=== PATIENT | female | born 2000 | race Hispanic/Latino ===

== ENCOUNTER 2024-04-13 08:27 | Day surgery (SDC) | payer OTHER, BC ==
[2024-04-13] MEDS: Ringers Lactate 1,000 ML IV ONE (09:00)
[2024-04-13] MEDS ORDERED: LIDOCAINE 1% MPF 5 ML VIAL ONE (10:12)
[2024-04-13] MEDS ORDERED: propofoL 200 MG/20 ML VIAL IV ONE (10:12)
[2024-04-13] MEDS ORDERED: FENTANYL CITR 100 MCG/2 ML ONE (10:12)
[2024-04-13] MEDS ORDERED: dexAMETHasone 10 MG/ML VIAL ONE (10:12)
[2024-04-13] MEDS ORDERED: ONDANSETRON 4 MG/2 ML VIAL ONE (10:12)
[2024-04-13] MEDS ORDERED: MIDAZOLAM HCL 2 MG/2 ML INJ ONE (10:12)
[2024-04-13] MEDS ORDERED: ROCURONIUM 50 MG/5 ML VIAL IV ONE (10:13)
[2024-04-13] MEDS ORDERED: MORPHINE 10 MG/ML VIAL ONE (10:57)
[2024-04-13] MEDS: BUPIVACAINE 0.25% PF 10 ML VIAL ONE (11:00)
--- NOTE | 2024-04-13 11:43 | P.OP ---
Date of Service: 04/13/24 Preoperative diagnosis: Recurrent acute tonsillitis, chronic tonsillitis, Tonsillolithiasis Postoperative diagnosis: Same Procedure: Tonsillectomy Surgeon: Avani Vega MD Instructional Support Technician: None Anesthesia: General via endotracheal tube IV fluids: See anesthesia record, crystalloid Estimated blood loss: Minimal, less than 5 mL Specimen: Bilateral tonsils Findings: Chronically inflamed and submucosal tonsil with deep crypts and tonsil stones Implants: None Indication: patient with persistent symptoms and findings in spite of good medical management. Details of operation: The patient was brought to the operating room and placed under general anesthesia via oral endotracheal tube. The head of bed was turned 90 degrees. A shoulder roll was placed and the neck was extended. A head drape was applied. The McIvor mouthgag was placed and suspended from the Torres stand. The oxygen concentration was confirmed with the anesthesiologist and was less than 40%. Weight-based dexamethasone was administered by the anesthesiologist. The soft palate was palpated and there was no submucous cleft. A red rubber catheter was placed in the nose and the tip withdrawn through the mouth and secured to the head drape for retraction of the soft palate. The tonsils were noted to be small with moderate submucosal component with deep crypts and tonsil stones. The left tonsil was grasped with a straight Allis clamp. The Bovie electrocautery was used to incise the mucosa over the anterior pillar and identified the tonsillar capsule. The tonsil was dissected using cautery and blunt dissection until free from soft tissue attachments. A tonsil ball was placed to aid in hemostasis. The right tonsil was removed in a similar manner. The nasopharynx was examined using a laryngeal mirror but there was no significant adenoid tissue and no adenoidectomy was indicated. The tonsillar fossa's were injected with 0.5% Marcaine with epinephrine; a total of 2 milliliters was used. The oropharynx was irrigated with cold saline. After suctioning, a Shackelford sump orogastric tube was passed for decompression of the stomach. The red rubber catheter was removed and used to suction the oropharynx, nasopharynx, and nasal cavities. The McIvor mouthgag was removed. There was no evidence of injury to the teeth, lips, or tongue. The mandible was mobile. The patient was then awakened from anesthesia and extubated in the operating room, taken to the recovery room in stable condition. Disposition: The patient will be discharged home later today in the care of their family with written postoperative instructions and appropriate pain medications. They will follow-up in Dr. Vega's office in approximately 1 mo nth. They are instructed to contact Dr. Vega's office for any bleeding or other concerns.
[2024-04-13] MEDS: HYDROMORPHONE HCL 1 MG/ML INJ ONE ×2 (11:47→12:04)
[2024-04-13] MEDS: ONDANSETRON 4 MG/2 ML VIAL ONE (11:50)
[2024-04-13 12:13] LABS: Urine Specific Gravity/Preg 1.025 (1.005-1.030)
[2024-04-13 12:53] VITALS: BP 150/81; TEMP 97.2; O2SAT 100
[2024-04-13] MEDS: HYDROCOD 2.5mg-ACETAMIN 108mg/5mL Soln ONE (13:14)
== END 2024-04-13 14:05 | disposition home or self-care (01) ==
LOC: OR 08:27
PROVIDERS: ATTEND Otolaryngology
PROC: 0CTPXZZ Resection of Tonsils, External Approach (ICD-10-PCS; principal; 2024-04-13 09:30)
DX: J03.91 Acute recurrent tonsillitis, unspecified (principal); J35.01 Chronic tonsillitis; J35.8 Other chronic diseases of tonsils and adenoids
CPT/HCPCS: 36415; 81025; 88302; 85018; 42826; J2704; J2001; J2250; J3010; J1100; J1170 ×2; J2405 ×2; J7120; 88304

== ENCOUNTER 2024-04-18 06:22 | Observation (INO) | payer OTHER, BC ==
--- OUTSIDE RECORDS SUMMARY | 2024-04-18 06:26 | XMS REPORT | Continuity of Care Document ---
Author Name Unknown Address [address] [facility] [address] [place] [address] [facility] thconnect Address [address] [facility] [place] [address] Care Team Providers Care Associate Dean Of Students Name Role Phone [phone] Primary Care Physician Unavailab Mike Gilbert Attending Clinician Unavailable OMAGCHARISSEIROGEAYCOOKIEI Attending Clinician Unavailgabriela keller Omaghomi WATERPROOFER, Omayemi Attending Clinician [phone] Unknown, Attending Attending Clinician Unavailab le Ebrahim WATERPROOFERSwapnli Attending Clinician +[phone] SWAPNIL LAL Attending Clinician Unavailable Pob, Adc Lab Main Attending Clinician UnavailShira Chinchilla MD Attending Clinician [phone] SHIRA SOUTH Attending Clinician UnavailDIANNA Delgado Attending Clinician Unavailable Dianna Mcrae MD Attending Clinician [phone] Unknown, Attending Attending Clinician Unavailab le RADIOLOGY Attending Clinician Unavailable Radiology Attending Clinician Unavailable BLANCA BLACK Attending Clinician Unavailable Blanca Black MD Attending Clinician [phone] Ebrahim WATERPROOFERSwapnil Attending Clinician [phone] Ghada MOYA, Azalia Argueta Attending Clinician Maria L kamille Mckeon MD, Otis Attending Clinician [phone] OTIS MCKEON Attending Clinician Unavailable ERICKA SYED Attending Clinician Unavailab Ericka Glaser DO Attending Clinician [phone] Rc WOLF Attending Clinician Unavailable Rc Mayen Attending Clinician [phone] Ricardo DAVISON, Nkjaspreet Attending Clinician [phone] Nel Waters Attending Clinician [phone] NEL LOGAN Attending Clinician Unavailable Doctor Unassigned, [place] Attending Clinician U dayton Mejia RN, Polly Attending Clinician Unavailgabriela Lnetz MD, Aura Barr Attending Clinician [phone] AURA LENTZ Attending Clinician UnavailYOKASTA Hastings Attending Clinician Unavailable Yokasta Jimenez PA-C Attending Clinician [phone] SAGRARIO HEWITT Attending Clinician Unavailable Oz WATERPROOFERSagrario Attending Clinician [phone] Chayo Méndez Attending Clinician [phone] ALANA TOSCANO Attending Clinician Unavailable Alana Toscano MD Attending Clinician [phone] Physician, No Primary or Family Admitting Clinic kt Unavailable GABRIELE JARA Admitting Clinician Unavailable BLANCA BLACK Admitting Clinician Unavailable OTIS MCKEON Admitting Clinician Unavailable ERICKA SYED Admitting Clinician Unavailab Rc Garza Admitting Clinician Unavailable IDMA ANDERSON Admitting Clinician Unavailable ALANA TOSCANO Admitting Clinician Unavailable Payers Payer Name Policy Type Policy Number Effective Date Expirati on Date Source [employer] [id number] 2021 00:00:00 [employer] EM[employer] PLAN [id number] 2023 00:00:00 Problems Condition Name Condition Details Condition Category Status Onset Date Resolution Date Last Treatment Date Treating Clinician Comments Source No known active problems No known active problems Disease [facility] Allergies, Adverse Reactions, Alerts Allergy Name Allergy Type Status Severity Reaction(s) Onset Date Inactive Date Treating Clinician Comments Source THYROID (PORK) DRUG Active High N/V 03-01 00:00: 00 [facility] Thyroid (Pork) Drug Allergy Active Nausea and/or Vomiting 03-01 00:00: 00 [facility] ALLERGEN IC EXTRACT- FOOD-POR K DRUG Active Diarrhea 04-25 00:00: 00 [facility] Allergen ic Extract- Food-Por k Propensi ty to adverse reaction s Active Nausea and/or Vomiting 04-25 00:00: 00 [facility] NO KNOWN ALLERGIE S Drug Class Active [facility] Social History Social Habit Start Date Stop Date Quantity Comments Source [facility] Social function 2023-03-07 00:00:00 2023-03-07 00:00:00 [facility] Exposure to SARS-CoV-2 (event) 2022-08-13 00:00:00 2022-08-23 14:07:00 Not sure [facility] Tobacco use and exposure 2022-02-09 00:00:00 2022-02-09 00:00:00 Smokeless tobacco non-user [facility] Sex assigned at 2000 00:00:00 2000 00:00:00 [facility] Smoking Status Start Date Stop Date Source Never smoked tobacco [facility] Medications Ordered Medication Name Filled Medication Name Start Date Stop Date Current Medication? Ordering Clinician Indication Dosage Frequency Signature (SIG) Comments Components Source albuterol 2.5 mg /3 mL (0.083 %) nebulizer solution 03-21 00:00: 00 Yes [id number] 2.5mg Inhale 3 mL every 4 (four) hours as needed for Wheezing or Shortness of Breath. [facility] bromphenira mine-pseudo ephedrine-D M (BROMFED DM) 2-30-10 mg/5 mL syrup 03-21 00:00: 00 04-01 04:59 :00 Yes [id number] 10mL Take 10 mL by mouth 4 (four) times daily as needed for Cold symptoms for up to 10 days. [facility] predniSONE 20 mg tablet 8-14 00:00: 00 03-27 04:59 :00 Yes [id number] 20mg Take 1 tablet by mouth in the morning and 1 tablet in the evening. Do all this for 5 days. [facility] penicillin g benzathine (BICILLIN L-A) injection 1.2 Million Units 8-10 23:45: 00 03-17 22:58 :00 No [id number] 1.210 1.2 Million Units, Intramuscu lar, ONCE, 1 dose, On 03/17/24 at 1845, CAROLA, Reason for Anti-Infec tive: Documented Infection, Documented Infection Site: HEENT, Duration of Therapy: Once (ED) [facility] penicillin g benzathine (BICILLIN L-A) injection 1.2 Million Units 6-19 00:00: 00 01-23 23:08 :00 No [id number] 1.210 [facility] amoxicillin 500 mg tablet 3-18 00:00: 00 11-03 04:59 :00 No [id number] 500mg Take 1 tablet by mouth in the morning and 1 tablet in the evening. Do all this for 10 days. [facility] fluconazole (DIFLUCAN) 150 mg tablet 3-18 00:00: 00 10-24 04:59 :00 No [id number] 150mg Take 1 tablet by mouth once now for 1 dose. [facility] iopamidol (ISOVUE 370-500 mL) injection 90 mL 16 22:15: 00 09-23 22:30 :00 No [id number] 90mL 90 mL, Intravenou s, ONCE, 1 dose, On Tue09/23/23 at 1630, Routine [facility] citalopram 10 mg tablet -16 14:48: 53 09-23 00:00 :00 No citalopram 10 mg tablet Take 1 tablet every day by oral route. [facility] tacrolimus 0.1 % ointment 09-23 14:47: 48 09-23 00:00 :00 No Apply to area(s). [facility] norgestimat e-ethinyl estradioL 0.25-35 mg-mcg per tablet 09-23 14:47: 20 09-23 00:00 :00 No Take by mouth. [facility] cetirizine 5 mg tablet 09-23 14:46: 37 09-23 00:00 :00 No 5mg Take 5 mg by mouth. [facility] liothyronin e 5 mcg tablet 2022-08 00:00: 00 Yes [facility] dexamethaso ne sod phos PF injection 10 mg 2022-08 23:00: 00 06-05 00:29 :00 No 10mg 10 mg, Oral, ONCE, 1 dose, On 06/04/23 at 1800, 1 mL [facility] ibuprofen (IBU) tablet 600 mg 2022-08 23:00: 00 06-05 00:29 :00 No 600mg 600 mg, Oral, ONCE, 1 dose, On 06/04/23 at 1800, CAROLA [facility] naproxen (NAPROSYN) tablet 500 mg 2022-08 01:30: 00 05-20 00:30 :00 No 500mg 500 mg, Oral, ONCE, 1 dose, On Shana 05/19/23 at 2030, Routine [facility] naproxen (NAPROSYN) 500 mg tablet 2022-08 00:00: 00 Yes [id number] 500mg Take 1 tablet by mouth in the morning and 1 tablet in the evening. Take with meals. [facility] amoxicillin -clavulanat e (AUGMENTIN) 875-125 mg per tablet 24 00:00: 00 05-12 04:59 :00 No [id number] 1{tbl} Take 1 tablet by mouth in the morning and 1 tablet in the evening. Do all this for 10 days. [facility] promethazin e-dextromet horphan 6.25-15 mg/5 mL syrup 05-01 00:00: 00 05-12 04:59 :00 No [id number] 5mL Take 5 mL by mouth 4 (four) times daily for 10 days. [facility] levalbutero l 45 mcg/actuati on inhaler 04-26 00:00: 00 05-04 04:59 :00 No [id number] 1{puff} Inhale 1 Puff every 6 (six) hours as needed for Wheezing for up to 7 days. [facility] methylPREDN ISolone (MEDROL, NERIS,) 4 mg tablets 04-25 00:00: 00 09-23 00:00 :00 No [id number] follow package directions [facility] benzonatate 200 mg capsule 04-25 00:00: 00 05-06 04:59 :00 No [id number] 200mg Take 1 capsule by mouth 3 (three) times daily as needed for Cough for up to 10 days. [facility] albuterol 90 mcg/actuati on inhaler 04-25 00:00: 00 04-26 00:00 :00 No [id number] 2{puff} Inhale 2 Puffs every 6 (six) hours as needed for Wheezing for up to 10 days. [facility] amoxicillin 500 mg tablet 03-07 00:00: 00 09-23 00:00 :00 No [id number] 500mg Take 1 tablet by mouth in the morning and 1 tablet in the evening. [facility] ondansetron 4 mg disintegrat ing tablet 03-07 00:00: 00 09-23 00:00 :00 No [id number] 4mg Take 1 tablet by mouth every 8 (eight) hours as needed for Nausea and Vomiting (N/V). [facility] methylPREDN ISolone sod succ (SOLU-MEDRO L (PF)) injection 40 mg 08-23 21:15: 00 08-23 20:35 :00 No [id number] 40mg [facility] s y [facility] ipratropium -albuteroL (DUONEB) 0.5 mg-3 mg(2.5 mg base)/3 mL nebulizer solution 3 mL 08-23 21:15: 00 08-23 20:34 :00 No [id number] 3mL [facility] s y [facility] norgestimat e-ethinyl estradioL 0.25-35 mg-mcg per tablet 08-23 14:16: 21 Yes Take by mouth. [facility] cabergoline 0.5 mg tablet 08-23 14:16: 21 Yes cabergolin e 0.5 mg tablet Take 1 tablet twice a week by oral route. [facility] cetirizine 5 mg tablet 08-23 14:16: 21 Yes 5mg Take 5 mg by mouth. [facility] citalopram 10 mg tablet 08-23 14:16: 21 Yes citalopram 10 mg tablet Take 1 tablet every day by oral route. [facility] tacrolimus 0.1 % ointment 08-23 14:16: 21 Yes Apply to area(s). [facility] Nebulizer & Compressor For Neb Kassy 08-23 00:00: 00 Yes [id number] Use as directed [facility] albuterol 2.5 mg /3 mL (0.083 %) nebulizer solution 08-23 00:00: 00 Yes [id number] 2.5mg Inhale 3 mL every 4 (four) hours as needed for Shortness of Breath or Wheezing. [facility] % nebulizer solution 08-23 00:00: 00 Yes [id number] .5mg Inhale 2.5 mL every 4 (four) hours as needed for Wheezing or Shortness of Breath. [facility] ity [facility] Nebulizer & Compressor For Neb Kassy 08-23 00:00: 00 Yes [id number] Use as directed [facility] benzonatate 100 mg capsule 08-23 00:00: 00 09-23 00:00 :00 No [id number] 200mg Take 2 capsules by mouth every 8 (eight) hours as needed for Cough. [facility] predniSONE 20 mg tablet 08-23 00:00: 00 08-29 05:59 :00 No [id number] 40mg Take 2 tablets by mouth in the morning for 5 days. [facility] tacrolimus 0.1 % ointment 03-27 18:51: 30 Yes Apply to area(s). [facility] cabergoline 0.5 mg tablet 03-27 18:51: 29 Yes cabergolin e 0.5 mg tablet Take 1 tablet twice a week by oral route. [facility] cetirizine 5 mg tablet 03-27 18:51: 29 Yes 5mg Take 5 mg by mouth. [facility] citalopram 10 mg tablet 03-27 18:51: 29 Yes citalopram 10 mg tablet Take 1 tablet every day by oral route. [facility] hydrOXYzine 25 mg tablet 03-18 00:00: 00 09-23 00:00 :00 No TAKE 1 TABLET EVERY TWELVE HOURS NEEDED [facility] norgestimat e-ethinyl estradioL 0.25-35 mg-mcg per tablet 02-09 18:46: 12 Yes Take by mouth. [facility] ondansetron 4 mg disintegrat ing tablet 02-09 00:00: 00 03-07 00:00 :00 No [id number] 4mg Take 1 tablet by mouth every 8 (eight) hours as needed for Nausea and Vomiting (N/V). [facility] Levonorgest rel 1.5 mg tablet 02-05 00:00: 00 09-23 00:00 :00 No [facility] ANNOVERA 0.15-0.013 mg/24 hour Ring 02-05 00:00: 00 09-23 00:00 :00 No [facility] buPROPion XL 300 mg 24 hr tablet 24 00:00: 00 Yes 300mg Take 1 tablet by mouth in the morning. [facility] buPROPion XL 150 mg 24 hr tablet 24 00:00: 00 Yes 150mg Take 150 mg by mouth daily. [facility] levothyroxi ne 125 mcg tablet 01-19 00:00: 00 Yes 125ug Take 1 tablet by mouth. [facility] levothyroxi ne 150 mcg tablet 01-19 00:00: 00 Yes 150ug Take 150 mcg by mouth. [facility] spironolact one 25 mg tablet 12-21 00:00: 00 Yes 25mg Take 25 mg by mouth 2 (two) times daily. [facility] sumatriptan 100 mg tablet 12-11 00:00: 00 09-23 00:00 :00 No [facility] albuterol 90 mcg/actuati on inhaler 11-22 00:00: 00 Yes [id number] 2{puff} Inhale 2 Puffs every 4 (four) hours as needed for Wheezing or Shortness of Breath. [facility] ibuprofen 800 mg tablet 11-22 00:00: 00 Yes [id number] 800mg Take 1 tablet by mouth every 8 (eight) hours as needed for Pain (scale 4-6) or Temp > 38.5 C. [facility] benzonatate 200 mg capsule 11-22 00:00: 00 09-23 00:00 :00 No [id number] 200mg Take 1 capsule by mouth 3 (three) times daily as needed for Cough. [facility] Immunizations Ordered Immunization Name Filled Immunization Name Date Status Comments Source Influenza Virus Vaccine Quad IM, Preserv and ABX Free 6 MO-64 YRS (FLUCELVAX) Unknown Completed [facility] Influenza Virus Vaccine Quad IM, Preserv and ABX Free 6 MO-64 YRS (FLUCELVAX) Unknown Completed [facility] Influenza Virus Vaccine Quad IM, Preserv and ABX Free 6 MO-64 YRS (FLUCELVAX) Unknown Completed [facility] Influenza Virus Vaccine Quad IM, Preserv and ABX Free 6 MO-64 YRS (FLUCELVAX) Unknown Completed [facility] Influenza Virus Vaccine Quad IM, Preserv and ABX Free 6 MO-64 YRS (FLUCELVAX) Unknown Completed [facility] Influenza Virus Vaccine Quad IM, Preserv and ABX Free 6 MO-64 YRS (FLUCELVAX) Unknown Completed [facility] Influenza Virus Vaccine Quad IM, Preserv and ABX Free 6 MO-64 YRS (FLUCELVAX) Unknown Completed [facility] Influenza Virus Vaccine Quad IM, Preserv and ABX Free 6 MO-64 YRS (FLUCELVAX) Unknown Completed [facility] Influenza Virus Vaccine Quad IM, Preserv and ABX Free 6 MO-64 YRS (FLUCELVAX) Unknown Completed [facility] Influenza Virus Vaccine Quad IM, Preserv and ABX Free 6 MO-64 YRS (FLUCELVAX) Unknown Completed [facility] Influenza Virus Vaccine Quad IM, Preserv and ABX Free 6 MO-64 YRS (FLUCELVAX) Unknown Completed [facility] Influenza Virus Vaccine Quad IM, Preserv and ABX Free 6 MO-64 YRS (FLUCELVAX) Unknown Completed [facility] Influenza Virus Vaccine Quad IM, Preserv and ABX Free 6 MO-64 YRS (FLUCELVAX) Unknown Completed [facility] Influenza Virus Vaccine Quad IM, Preserv and ABX Free 6 MO-64 YRS (FLUCELVAX) Unknown Completed [facility] Influenza Virus Vaccine Quad IM, Preserv and ABX Free 6 MO-64 YRS (FLUCELVAX) Unknown Completed [facility] Influenza Virus Vaccine Quad IM, Preserv and ABX Free 6 MO-64 YRS (FLUCELVAX) Unknown Completed [facility] Vital Signs Vital Name Observation Time Observation Value Comments S ource Systolic blood pressure 2024-03-21 15:15:00 126 mm[Hg] [facility] Diastolic blood pressure 2024-03-21 15:15:00 86 mm[Hg] [facility] Heart rate 2024-03-21 15:15:00 101 /min [facility] Body temperature 2024-03-21 15:15:00 37.11 Ivory [facility] Respiratory rate 2024-03-21 15:15:00 19 /min [facility] Body height 2024-03-21 15:15:00 172.7 cm [facility] Body weight 2024-03-21 15:15:00 73.165 kg [facility] BMI 2024-03-21 15:15:00 24.53 kg/m2 [facility] Oxygen saturation in Arterial blood by Pulse oximetry 2024-03-21 15:15:00 100 /min [facility] Systolic blood pressure 2024-03-17 22:44:00 132 mm[Hg] [facility] Diastolic blood pressure 2024-03-17 22:44:00 83 mm[Hg] [facility] Heart rate 2024-03-17 22:44:00 103 /min [facility] Body temperature 2024-03-17 22:44:00 37.06 Ivory [facility] Respiratory rate 2024-03-17 22:44:00 12 /min [facility] Body height 2024-03-17 22:44:00 172.7 [facility] Body weight 2024-03-17 22:44:00 27.987 [facility] BMI 2024-03-17 22:44:00 9.38 kg/m2 [facility] Oxygen saturation in Arterial blood by Pulse oximetry 2024-03-17 22:44:00 100 /min [facility] Systolic blood pressure 2024-01-24 22:36:00 122 mm[Hg] [facility] Diastolic blood pressure 2024-01-24 22:36:00 84 mm[Hg] [facility] Heart rate 2024-01-24 22:35:00 103 /min [facility] Body temperature 2024-01-24 22:35:00 36.72 Ivory [facility] Respiratory rate 2024-01-24 22:35:00 16 /min [facility] Body weight 2024-01-24 22:35:00 69.582 kg [facility] BMI 2024-01-24 22:35:00 23.32 kg/m2 [facility] Oxygen saturation in Arterial blood by Pulse oximetry 2024-01-24 22:35:00 100 /min [facility] Systolic blood pressure 2023-10-24 14:17:00 135 mm[Hg] [facility] Diastolic blood pressure 2023-10-24 14:17:00 87 mm[Hg] [facility] Heart rate 2023-10-24 14:17:00 97 /min [facility] Body temperature 2023-10-24 14:17:00 36.83 Ivory [facility] Respiratory rate 2023-10-24 14:17:00 20 /min [facility] Body height 2023-10-24 14:17:00 172.7 cm [facility] Body weight 2023-10-24 14:17:00 69.4 kg [facility] BMI 2023-10-24 14:17:00 23.26 kg/m2 [facility] Oxygen saturation in Arterial blood by Pulse oximetry 2023-10-24 14:17:00 99 /min [facility] Systolic blood pressure 2023-09-23 22:00:00 106 mm[Hg] [facility] Diastolic blood pressure 2023-09-23 22:00:00 74 mm[Hg] [facility] Heart rate 2023-09-23 22:00:00 80 /min [facility] Respiratory rate 2023-09-23 22:00:00 25 /min [facility] Oxygen saturation in Arterial blood by Pulse oximetry 2023-09-23 22:00:00 100 /min [facility] Body temperature 2023-09-23 20:00:00 36.28 Ivory [facility] Body height 2023-09-23 20:00:00 172.7 cm [facility] Body weight 2023-09-23 20:00:00 65.772 kg [facility] BMI 2023-09-23 20:00:00 22.05 kg/m2 [facility] Systolic blood pressure 2023-09-16 17:52:00 125 mm[Hg] [facility] Diastolic blood pressure 2023-09-16 17:52:00 87 mm[Hg] [facility] Heart rate 2023-09-16 17:52:00 80 /min [facility] Body temperature 2023-09-16 17:52:00 36.28 Ivory [facility] Respiratory rate 2023-09-16 17:52:00 12 /min [facility] Body height 2023-09-16 17:52:00 172.7 cm [facility] Body weight 2023-09-16 17:52:00 66.633 kg [facility] BMI 2023-09-16 17:52:00 22.34 kg/m2 [facility] Oxygen saturation in Arterial blood by Pulse oximetry 2023-09-16 17:52:00 100 /min [facility] Systolic blood pressure 2023-06-16 20:13:00 124 mm[Hg] [facility] Diastolic blood pressure 2023-06-16 20:13:00 85 mm[Hg] [facility] Heart rate 2023-06-16 20:13:00 84 /min [facility] Body height 2023-06-16 20:13:00 172.7 cm [facility] Body weight 2023-06-16 20:13:00 68.221 kg [facility] BMI 2023-06-16 20:13:00 22.87 kg/m2 [facility] Oxygen saturation in Arterial blood by Pulse oximetry 2023-06-16 20:13:00 99 /min [facility] Systolic blood pressure 2023-06-05 01:29:00 119 mm[Hg] [facility] Diastolic blood pressure 2023-06-05 01:29:00 83 mm[Hg] [facility] Heart rate 2023-06-05 01:29:00 79 /min [facility] Body temperature 2023-06-05 01:29:00 36.67 Ivory [facility] Respiratory rate 2023-06-05 01:29:00 18 /min [facility] Oxygen saturation in Arterial blood by Pulse oximetry 2023-06-05 01:29:00 100 /min [facility] Body height 2023-06-04 22:44:00 172.7 cm [facility] Body weight 2023-06-04 22:44:00 68.04 kg [facility] BMI 2023-06-04 22:44:00 22.81 kg/m2 [facility] Systolic blood pressure 2023-05-20 00:28:00 135 mm[Hg] [facility] Diastolic blood pressure 2023-05-20 00:28:00 100 mm[Hg] [facility] Heart rate 2023-05-20 00:28:00 69 /min [facility] Respiratory rate 2023-05-20 00:28:00 18 /min [facility] Oxygen saturation in Arterial blood by Pulse oximetry 2023-05-20 00:28:00 100 /min [facility] Body temperature 2023-05-19 21:32:00 36.28 Ivory [facility] Body height 2023-05-19 21:32:00 172.7 cm [facility] Body weight 2023-05-19 21:32:00 69.4 kg [facility] BMI 2023-05-19 21:32:00 23.26 kg/m2 [facility] Systolic blood pressure 2023-05-01 14:54:00 117 mm[Hg] [facility] Diastolic blood pressure 2023-05-01 14:54:00 77 mm[Hg] [facility] Heart rate 2023-05-01 14:53:00 91 [facility] 2023-05-01 14:53:00 36.89 Ivory [facility] Respiratory rate 2023-05-01 14:53:00 16 /min [facility] Body height 2023-05-01 14:53:00 172.7 cm [facility] Body weight 2023-05-01 14:53:00 67.132 kg [facility] BMI 2023-05-01 14:53:00 22.50 kg[facility]m2 [facility] Oxygen saturation in Arterial blood by Pulse oximetry 2023-05-01 14:53:00 100 /min [facility] Systolic blood pressure 2023-04-25 15:18:00 126 mm[Hg] [facility] Diastolic blood pressure 2023-04-25 15:18:00 86 mm[Hg] [facility] Heart rate 2023-04-25 15:18:00 81 /min [facility] Body temperature 2023-04-25 15:16:00 36.94 Ivory [facility] Respiratory rate 2023-04-25 15:16:00 18 /min [facility] Body height 2023-04-25 15:16:00 172.7 cm [facility] Body weight 2023-04-25 15:16:00 67.223 kg [facility] BMI 2023-04-25 15:16:00 22.53 kg/m2 [facility] Oxygen saturation in Arterial blood by Pulse oximetry 2023-04-25 15:16:00 98 /min [facility] Systolic blood pressure 2023-03-07 16:51:00 127 mm[Hg] [facility] Diastolic blood pressure 2023-03-07 16:51:00 84 mm[Hg] [facility] Heart rate 2023-03-07 16:51:00 88 /min [facility] Body temperature 2023-03-07 16:51:00 36.94 Ivory [facility] Respiratory rate 2023-03-07 16:51:00 20 /min [facility] Body height 2023-03-07 16:51:00 172.7 cm [facility] Body weight 2023-03-07 16:51:00 69.882 kg [facility] BMI 2023-03-07 16:51:00 23.43 kg/m2 [facility] Oxygen saturation in Arterial blood by Pulse oximetry 2023-03-07 16:51:00 98 /min [facility] Systolic blood pressure 2022-08-23 20:16:00 141 mm[Hg] [facility] Diastolic blood pressure 2022-08-23 20:16:00 92 mm[Hg] [facility] Heart rate 2022-08-23 20:15:00 91 /min [facility] Body temperature 2022-08-23 20:15:00 37.06 Ivory [facility] Respiratory rate 2022-08-23 20:15:00 18 /min [facility] Body weight 2022-08-23 20:15:00 68.947 [facility] BMI 2022-08-23 20:15:00 23.11 kg/m2 [facility] Oxygen saturation in Arterial blood by Pulse oximetry 2022-08-23 20:15:00 100 /min [facility] Systolic blood pressure 2022-04-14 20:37:00 149 mm[Hg] [facility] Diastolic blood pressure 2022-04-14 20:37:00 84 mm[Hg] [facility] Heart rate 2022-04-14 20:37:00 86 /min [facility] Body height 2022-04-14 20:37:00 172.7 cm [facility] Body weight 2022-04-14 20:37:00 69.4 kg [facility] BMI 2022-04-14 20:37:00 23.26 kg/m2 [facility] Procedures Procedure Date / Time Performed Performing Clinician Source XR CHEST 2 VW 2024-03-21 16:07:03 [facility]-2 ANTIGEN (BINAX NOW) 2024-03-21 15:28:00 Kay Mena [facility] POCT MOLECULAR STREP 2024-03-17 22:49:00 Unknown, Kenneth dao [facility] POCT SARS-COV-2 ANTIGEN (BINAX NOW) 2024-03-17 22:45:00 Swapnil Lal [facility] POCT MOLECULAR STREP 2024-01-24 22:31:00 Unknown, Kenneth dao [facility] BI ULTRASOUND BREAST LIMITED LEFT 2023-11-25 19:44:00 Requisition, Paper [facility] POCT MOLECULAR STREP 2023-10-24 14:20:00 Unknown, Attarianna kingstondouglas [facility] CT CHEST PULMONARY ANGIOGRAM 2023-09-23 22:19:00 Blanca Black [facility] POCT TEST 2023-09-23 22:02:00 Blanca Black [facility] TROPONIN I 2023-09-23 20:40:00 Blanca Black [facility] BASIC METABOLIC PANEL (NA, K, CL, CO2, GLUCOSE, BUN, CREATININE, CA) 2023-09-23 20:40:00 Blanca Black [facility] CBC WITH DIFF 2023-09-23 20:40:00 Blanca Black [facility] D-DIMER 2023-09-23 20:40:00 Blanca Black [facility] N-TERMINAL PRO-BNP 2023-09-23 20:40:00 Blanca Black [facility] CONSENT/REFUSAL FOR DIAGNOSIS AND TREATMENT 2023-09-23 19:57:10 Doctor Unassigned, [place] [facility] XR CHEST 2 VW 2023-09-16 19:41:28 Swapnil Lal [facility] TRANSTHORACIC ECHO (TTE) COMPLETE 2023-07-12 22:30:25 Otis Mckeon [facility] FLU VACC (1923-0387), 6 MO-64 YRS, .5ML, IM, QUAD (FLUCELVAX) 2023-06-16 20:43:20 Otis Mckeon [facility] POCT TEST 2023-06-05 00:31:00 Jocelyn Syed ra [facility] ASSIGNMENT OF BENEFITS 2023-06-04 22:51:55 Docto r Unassigned, [place] [facility] CONSENT/REFUSAL FOR DIAGNOSIS AND TREATMENT 2023-06-04 22:34:41 Doctor Unassigned, [place] [facility] BI COMBO ULTRASOUND RIGHT COMPLETE LEFT LIMITED 2023-05-31 16:03:07 Requisition, Paper [facility] ASSIGNMENT OF BENEFITS 2023-05-19 22:51:09 Docto r Unassigned, [place] [facility] XR CHEST 1 VW 2023-05-19 22:34:50 Rc [facility] COVID-19 (ID NOW RAPID TESTING) 2023-05-19 22:16:00 Rc Wolf [facility] CONSENT/REFUSAL FOR DIAGNOSIS AND TREATMENT 2023-05-19 21:28:18 Doctor Unassigned, [place] [facility] POCT MOLECULAR STREP 2023-03-07 16:54:00 Unknown, Atte nding [facility] ASSIGNMENT OF BENEFITS 2023-03-07 16:46:38 Docsejal r Unassigned, [place] [facility] BI ULTRASOUND BREAST COMPLETE BILATERAL 2022-11-03 15:29:02 Requisition, Paper [facility] REFERRAL- REQUEST/RESPONSE 2022-04-23 05:01:00 Doctor Unassigned, [place] [facility] Encounters Start Date/Time End Date/Time Encounter Type Admission Type Attending Clinicians Care Facility Care Department Encounter ID Source 2024-04-06 11:30:00 Inpatient Mike Hargrove [facility] [id number] [facility] 2024-03-21 10:50:13 2024-03-21 23:59:00 Outpatient R EMETERIO COBOS [facility] [id number] [facility] 2024-03-21 10:50:13 2024-03-21 23:59:00 [facility] 1.2.840.114 350.1.13.10 4.2.7.2.686 [id number] [facility] 2024-03-21 00:00:00 2024-03-21 13:09:35 [facility] MEDICAL OFFICE BUILDING 1..840.114 350.1.13.10 4.2.7.2.686 [id number] 370 [id number] [facility] 2024-03-21 10:00:00 2024-03-21 11:00:06 Urgent Care Emeterio Cobos Unknown, Attending 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 Pob, Adc Lab Main Shira [place] [facility] BUILDING 1.2.840.114 350.1.13.10 4.2.7.2.686 [id number] [facility] 2024-02-23 09:15:00 2024-02-23 09:15:00 Outpatient R SHIRA SOUTH [facility] [id number] [facility] 2024-01-25 17:20:00 2024-01-25 17:20:00 Outpatient R [facility] [id number] [facility] 2024-01-24 17:20:00 2024-01-24 18:34:39 Outpatient R DIANNA MCRAE [facility] [id number] [facility] 2024-01-24 17:20:00 2024-01-24 18:34:39 Urgent Care Dianna Mcrae Unknown, Attending [facility] 1.0.114 350.1.13.10 4.2.7.2.686 [id number] 370 [id number] [facility] 2023-11-25 14:22:50 2023-11-25 23:59:00 Outpatient R RADIOLOGY [facility] [id number] [facility] 2023-11-25 14:22:50 2023-11-25 23:59:00 Hospital Encounter Radiology [facility] 1..114 350.1.13.10 4.2.7.2.686 [id number] [facility] 2023-10-24 09:20:00 2023-10-24 09:29:42 Outpatient R MISTI MCRAEANDA [facility] [id number] [facility] 2023-10-24 09:20:00 2023-10-24 09:29:42 Urgent Care Dianna Mcrae Unknown, Attending [facility] 1.114 350.1.13.10 4.2.7.2.686 [id number] 370 [id number] [facility] 2023-09-23 14:04:00 2023-09-23 18:17:00 Emergency X BLANCA BLACK [facility] ERT [id number] [facility] 2023-09-23 14:04:00 2023-09-23 18:17:00 Emergency Blanca Black [facility] 1..114 350.1.13.10 4.2.7.2.686 [id number] [facility] 2023-09-16 12:03:37 2023-09-16 23:59:00 Hospital Encounter Swapnil Lal [facility] 1.0.114 350.1.13.10 4.2.7.2.686 [id number] [facility] 2023-09-16 11:40:00 2023-09-16 13:02:27 Outpatient R SWAPNIL LAL [facility] [id number] [facility] 2023-09-16 11:40:00 2023-09-16 12:00:00 Urgent Care Swapnil Lal Unknown, Attending [facility] MEDICAL OFFICE BUILDING 1.2.840.114 350.1.13.10 4.2.7.2.686 [id number] 370 [id number] [facility] 2023-08-25 00:00:00 2023-08-25 00:00:00 Nurse Triage Azalia Lee [facility] 1.2.840.114 350.1.13.10 4.2.7.2.686 [id number] [facility] 2023-07-13 00:00:00 2023-07-13 00:00:00 [facility] 1.2.840.114 350.1.13.10 4.2.7.2.686 [id number] [facility] 2023-07-12 15:56:17 2023-07-12 23:59:00 [facility] 1.2.840.114 350.1.13.10 4.2.7.2.686 [id number] [facility] 2023-07-12 15:56:17 2023-07-12 23:59:00 [id number] 2023-06-16 14:20:00 2023-06-16 14:26:25 [facility] [id number] [facility] 2023-06-16 14:20:00 2023-06-16 14:26:25 Office Visit Otis Mckeon [facility] NAL BUILDING 1.114 350.1.13.10 4.2.7.2.686 [id number] [facility] 2023-06-04 17:46:00 2023-06-04 20:32:00 Emergency X ERICKA SYED [facility] ERT [id number] [facility] 2023-06-04 17:46:00 2023-06-04 20:32:00 Emergency Ericka Syed [facility] 1.114 350.1.13.10 4.2.7.2.686 [id number] [facility] 2023-05-31 09:56:09 2023-05-31 23:59:00 Outpatient R RADIOLOGY [facility] [id number] [facility] 2023-05-31 09:56:09 2023-05-31 23:59:00 Hospital Encounter Radiology [facility] 1.114 350.1.13.10 4.2.7.2.686 [id number] [facility] 2023-05-19 16:37:00 2023-05-19 19:35:00 Emergency X Rc WOLF [facility] ERT [id number] [facility] 2023-05-19 16:37:00 2023-05-19 19:35:00 Emergency Rc Wolf [facility] 1.114 350.1.13.10 4.2.7.2.686 [id number] [facility] 2023-05-01 09:40:00 2023-05-01 10:00:00 Urgent Care Swapnil Lal Nkechinyere Unknown, Attending [facility] 1.114 350.1.13.10 4.2.7.2.686 [id number] [facility] 2023-05-01 09:40:00 2023-05-01 09:40:00 Outpatient R SWAPNIL LAL [facility] [id number] [facility] 2023-04-26 00:00:00 2023-04-26 00:00:00 [facility]ill [facility] MED[facility] OFF[facility] BUILDING 1..840.114 350.1.13.10 4.2.7.2.686 [id number] 370 [id number] [facility] 2023-04-25 09:40:00 2023-04-25 10:41:32 Outpatient R NEL LOGAN [facility] [id number] [facility] 2023-04-25 09:40:00 2023-04-25 10:00:00 Urgent Care Nel Logan Unknown, Attending [facility] MEDICAL OFFICE BUILDING 1..840.114 350.1.13.10 4.2.7.2.686 [id number] [facility] 2023-04-25 00:00:00 2023-04-25 00:00:00 RefNel Jones [facility] MEDICAL OFFICE BUILDING 1..840.114 350.1.13.10 4.2.7.2.686 [id number] [facility] 2023-03-07 11:40:00 2023-03-07 12:00:00 Urgent Care Dianna Mcrae Unknown, Attending [facility] MEDICAL OFFICE BUILDING 1..840.114 350.1.13.10 4.2.7.2.686 [id number] [facility] 2023-03-07 11:40:00 2023-03-07 11:40:00 Outpatient R DIANNA MCRAE [facility] [id number] [facility] 2023-03-07 00:00:00 2023-03-07 00:00:00 Orders Only Doctor Unassigned, [place] [facility] 1.2840.114 350.1.13.10 4.2.7.2.686 [id number] [facility] 2023-03-07 00:00:00 2023-03-07 00:00:00 Letter (Out) [facility] MEDICAL OFFICE BUILDING 1.2840.114 350.1.13.10 4.2.7.2.686 [id number] [facility] 2023-03-07 00:00:00 2023-03-07 00:00:00 Telephone Thor [facility] MEDICAL OFFICE [facility] 1.840.114 350.1.13.10 4.2.7.2.686 [id number] [facility] 2023-01-06 00:00:00 2023-01-06 00:00:00 Patient Secure Msg Doctor Unassigned, [place] [facility] 1.284.114 350.1.13.10 4.2.7.2.686 [id number] [facility] 2022-11-03 09:18:58 2022-11-03 23:59:00 Outpatient R RADIOLOGY [facility] [id number] [facility] 2022-11-03 09:18:58 2022-11-03 23:59:00 Hospital Encounter Radiology [facility] 1.840.114 350.1.13.10 4.2.7.2.686 [id number] [facility] 2022-08-23 14:15:00 2022-08-23 14:31:38 Outpatient R DIANNA MCRAE [facility] [id number] [facility] 2022-08-23 14:15:00 2022-08-23 14:31:38 Urgent Care Dianna Mcrae Unknown, Attending [facility] MEDICAL OFFICE BUILDING 1.2840.114 350.1.13.10 4.2.7.2.686 [id number] [facility] 2022-08-23 00:00:00 2022-08-23 00:00:00 Letter (Out) Polly Mejia [facility] 1.2840.114 350.1.13.10 4.2.7.2.686 [id number] [facility] 2022-04-26 00:00:00 2022-04-26 00:00:00 Telephone Aura Lentz [facility] MEDICAL OFFICE BUILDING 1.2840.114 350.1.13.10 4.2.7.2.686 [id number] [facility] 2022-04-23 00:00:00 2022-04-23 00:00:00 Orders Only Doctor Unassigned, [place] [facility] 1.2840.114 350.1.13.10 4.2.7.2.686 [id number] [facility] 2022-04-19 00:00:00 2022-04-19 00:00:00 Telephone Itz Aura Barr [facility] MED[facility] OFFICE BUILDING 1.2840.114 350.1.13.10 4.2.7.2.686 [id number] [facility] 2022-04-16 00:00:00 2022-04-16 00:00:00 Telephone Aura Lentz [facility] MEDICAL OFFICE BUILDING 1.2840.114 350.1.13.10 4.2.7.2.686 [id number] [facility] 2022-04-15 00:00:00 2022-04-15 00:00:00 Telephone Aura Lentz [facility]N [facility] MEDICAL OFFICE BUILDING 1.2.840.114 350.1.13.10 4.2.7.2.686 [id number] [facility] 2022-04-14 15:45:00 2022-04-14 16:00:00 Office Visit Aura Lentz [facility] MEDICAL OFFICE BUILDING 1.2.840.114 350.1.13.10 4.2.7.2.686 [id number] [facility] 2022-04-14 15:45:00 2022-04-14 15:45:00 [facility] [id number] [facility] 2022-03-29 00:00:00 2022-03-29 00:00:00 Telephone Thor [facility] MEDICAL OFFICE BUILDING 1.2.840.114 350.1.13.10 4.2.7.2.686 [id number] [facility] 2022-03-27 18:59:07 2022-03-27 23:59:00 Outpatient R DIANNA MCRAE [facility] [id number] [facility] 2022-03-27 18:59:07 2022-03-27 23:59:00 Hospital Encounter Thor [facility] MEDICAL OFFICE BUILDING 1.2.840.114 350.1.13.10 4.2.7.2.686 [id number] [facility] 2022-03-27 18:40:00 2022-03-27 19:04:51 Outpatient [facility] [id number] [facility] 2022-03-27 18:40:00 2022-03-27 19:04:51 Urgent Care Dianna Mcrae [facility] 1.2.840.114 350.1.13.10 4.2.7.2.686 [id number] [facility] 2022-02-26 14:23:58 2022-02-26 23:59:00 Outpatient R RADIOLOGY [facility] [id number] [facility] 2022-02-26 14:23:58 2022-02-26 23:59:00 Hospital Encounter Radiology [facility] 1.284.114 350.1.13.10 4.2.7.2.686 [id number] [facility] 2022-02-26 00:00:00 2022-02-26 00:00:00 Orders Only Doctor Unassigned, [place] [facility] 1.2840.114 350.1.13.10 4.2.7.2.686 [id number] [facility] 2022-02-09 18:40:00 2022-02-09 19:20:14 Outpatient R OZ SAGRARIO [facility] [id number] [facility] 2022-02-09 18:40:00 2022-02-09 19:20:14 Urgent Care Sagrario Hewitt Chayo [facility] 1.2.840.114 350.1.13.10 4.2.7.2.686 [id number] [facility] 2022-02-09 00:00:00 2022-02-09 00:00:00 Orders Only Doctor Unassigned, [place] [facility] 1.2840.114 350.1.13.10 4.2.7.2.686 [id number] [facility] 2021-11-22 19:35:00 2021-11-22 21:58:00 Emergency X ALANA TOSCANO [facility] ERT [id number] [facility] 2021-11-22 19:35:00 2021-11-22 21:58:00 Emergency Alana Toscano [facility] 1.2.840.114 350.1.13.10 4.2.7.2.686 [id number] [facility] Results Test Description Test Time Test Comments Results Resul t Comments Source XR CHEST 2 VW 2024-03-08 4 17:23:59 Study: Two view chest. Ordering Physician: JAYA COBOS Date: 03/21/2024 10:50 AM History:chest tightness, covid positive COMPARISON: None. Findings: Frontal and lateral views of the chest demonstrate a normal heartsize. The lungs are clear without infiltrate, pleural effusion orpneumothorax. Scoliotic curvature of the thoracolumbar spine is present. Noacute osseous abnormality is visualized. [facility] SARS-COV-2 ANTIGEN (BINAX NOW)2024-03-17 23:00:00* Test Item Value Reference Range Interpretation Comme nts POCT SARS-COV-2 ANTIGEN (test code = 63969-3) Not Detected Not Detected, See Comment On board controls acceptable with C Line (test code = 3574) Yes SHARON (test code = SHARON) accurate development and interpretation of all internal controls [facility] MOLECULAR [id number] 22:54:16* Test Item Value Reference Range Interpretation Comme nts POCT Molecular Strep (test c ode = 85564-7) Positive Negative A Lab Interpretation (test cod e = 48174-8) Abnormal [facility] MOLECULAR [id number] 22:36:48* Test Item Value Reference Range Interpretation Comme nts POCT Molecular Strep (test c ode = 03601-4) Positive Negative A Lab Interpretation (test cod e = 32139-6) Abnormal [facility] [id number] 20:31:16Examination:BI ULTRASOUND BREAST LIMITED LEFT History:Patient is 23 year old and is seen for: ?L breast mass. ? Comparisons: 05/31/2023 BI COMBO ULTRASOUND RIGHT COMPLETE LEFT LIMITED and 11/03/2022 BI ULTRASOUND BREAST COMPLETE BILATERAL Prior exam with following findings: Left:Stable appearance of the 6 mm x 5 mm x 3 mm oval, parallel, hypoechoic mass with circumscribed margins seen in the lower outer quadrant of the left breast at 4 o'clock, 5 cm from the nipple. There is no internal vascularity. Ultrasound of the left axilla is normal. Right:The patient complains of right nipple dryness. She states that this has improved since starting topical ointment therapy. On visual inspection, there is no suspicious finding involving the right nipple. There are no ulcerations or redness identified. There is no evidence of suspicious masses or other abnormal findings in the right breast. Ultrasound of the right axilla is normal. CURRENT EXAM: Findings: Left:Targeted left breast ultrasound was performed. Again noted is a stable appearing 3 x 2 x 6 mm oval circumscribed complicated cyst versus mass in the left breast at 4:00, 5 cm from the nipple. ?This previously measured 6 mm in greatest dimension on prior imaging, so this is not significantly changed in appearance since the prior exam.The visualized level 1 axillary lymph nodes appear unremarkable. Impression: Left: ?Again noted is a stable appearing 6 mm oval circumscribed complicated cyst versus mass in the left breast at 4:00, 5 cm from the nipple. ?Short interval follow-up ultrasound is recommended in 1 year to document stability x 2 years. ?BI-RADS 3. Of note, the patient states that the right nipple dryness which was previously reported during her last clinic visit has since resolved, and she has no current clinical concerns in the right breast. Recommendation:Short interval follow-up ultrasound 12 months - Left ? BI-RADS Category: Left 3 - Probably Benign [facility] MOLECULAR [id number] 14:23:55* Test Item Value Reference Range Interpretation Comme nts POCT Molecular Strep (test c ode = 47240-1) Positive Negative A Lab Interpretation (test cod e = 53936-0) Abnormal [facility] CHEST PULMONARY [id number] 23:51:23HISTORY: ?Pulmonary embolism (PE) suspected, high prob COMPARISON: ?none TECHNIQUE:CTA scan of the chest performed. Contiguous axial CT images were obtainedfrom the thoracic inlet through the diaphragm after arterial phaseinjection of intravenous contrast. ?Multiplanar reformations were viewed krystle PACS workstation. ?3D VOLUME RENDERED MIP RECONSTRUCTIONS WERE PERFORMEDAT A SEPARATE WORKSTATION AND SAVED TO THE PACS. CT scan done according toALARA Technical quality: Technical quality: adequate. FINDINGS: There are no intraluminal filling defects to suggest pulmonary embolism. No thoracic aortic dissection. No pleural or pericardial effusion. No thoracic adenopathy. No failure or pneumonia. Central airways widely patent. No bronchial wallthickening or air trapping. Images through the upper abdomen unremarkable. Right lower convex scoliosis.[facility] [id number] 22:02:00* Test Item Value Reference Range Interpretation Comme nts POCT PREG (test code = 1605) Negative On board controls acceptable with C Line (test code = 3574) Yes POCT PREG LOT # (test code = 3575) [id number] POCT PREG TEST DATE ( test code = 3576) 09/12/2024 Lab Interpretation (test cod e = 90703-4) Normal [facility] [id number] 21:55:43* Test Item Value Reference Range Interpretation Comme [facility] NT-proBNP (test code = 24747-3) <=125 Lab Interpretation (test cod e = 74209-5) Normal [facility]-[id number] 21:41:04* Test Item Value Reference Range Interpretation Comments D-DIMER (test code = 3842453943) See_Comment [Automated message] The system which generated this result transmitted reference range: <0.50 ?g/mL (FEU). The reference range was not used to interpret this result as normal/abnormal. SHARON (test code = SHARON) This test may be used in conjunction with a clinical pretest probability (PTP) assessment model to exclude venous thromboembolism (VTE) in patients suspected of deep venous thrombosis (DVT) and pulmonary embolism (PE) A D-Dimer value less than 0.50 ?g/ml (FEU) has a negative predicative value of 96 to 100% (95% CI)and 97 to 100% (95% CI) as an aid in the diagnosis of deep vein thrombosis (DVT) and pulmonary embolism when there is low or moderate pretest probability of PE or DVT. D-Dimer values are expressed in initial fibrinogen equivalent units (FEU)" The assay results should be used with other information, including the clinical context, in forming a diagnosis. Lab Interpretation (test code = 13873-5) [id number] 21:29:39* Test Item Value Reference Range Interpretation Comme nts TROPONIN I (test code = 3831681881) 0.001 ng/mL <=0.034 SHARON (test code = SHARON) Reference (Normal) Range (defined by the 99th percentile reference limit): <= 0.034 ng/mL Note: Cardiac troponin begins to rise 3-4 hours after the onset of ischemia. Repeat in 4-6 hours if the sample was drawn within 3-4 hours of the onset of the symptom and found normal. Diagnosis of myocardial injury is made with acute changes in cTn concentrations with at least one serial sample above the 99th percentile upper reference limit (URL), taken together with the patient's clinical presentation. Biotin has been reported to cause a negative bias, interpret results relative to patient's use of biotin. Lab Interpretation (test code = 54522-1) [facility] (NA, K, CL, CO2, GLUCOSE, BUN, CREATININE, CA)2023-09-23 21:17:58* Test Item Value Reference Range Interpretation Comme nts NA (test code = 5234746111) 137 mmol/L 135-145 K (test code = 8819357535) 4.4 mmol/L 3.5-5.0 CL (test code = 1534702113) 104 mmol/L 98-108 CO2 TOTAL (test code = 6589712851) 26 mmol/L 23-31 AGAP (test code = 0336504855) 7 2-16 BUN (test code = 5433574727) 17 mg/dL 7-23 GLUCOSE (test code = 1115775187) 95 mg/dL 70-110 CREATININE (test code = 2160-0) 0.70 mg/dL 0.50-1.04 CALCIUM (test code = 2559392565) 9.6 mg/dL 8.6-10.6 eGFR (test code = 05668-1) 123.3 mL/min/1.73m2 CKD-EPI eGFR (20 21). Assuming creatinine has been stable day-to-day for at least three months, the eGFR indicates Category G1 (>= 90 mL/min/1.73 m2) [facility] WITH [id number] 21:10:19* Test Item Value Reference Range Interpretation Comme nts WBC (test code = 6690-2) 8.30 4.30-11.10 RBC (test code = 789-8) 5.31 3.93-5.25 H HGB (test code = 718-7) 13.3 g/dL 11.6-15.0 HCT (test code = 4544-3) 41.7 % 35.7-45.2 MCV (test code = 787-2) 78.5 fL 80.6-95.5 L MCH (test code = 785-6) 25.0 pg 25.9-32.8 L MCHC (test code = 786-4) 31.9 g/dL 31.6-35.1 RDW-SD (test code = 19125-3) 39.0 fL 39.0-49.9 RDW-CV (test code = 788-0) 13.8 % 12.0-15.5 PLT (test code = 777-3) 375 166-358 H MPV (test code = 31224-6) 9.6 fL 9.5-12.9 NRBC/100 WBC (test code = 8095573635) 0.0 0.0-10.0 NRBC x10^3 (test code = 0931611083) See_Comment [Automated messa ge] The system which generated this result transmitted reference range: 10*3/?L. The reference range was not used to interpret this result as normal/abnormal. GRAN MAT (NEUT) % (test code = 770-8) 55.6 % IMM GRAN % (test code = 3369804406) 0.40 % LYMPH % (test code = 736-9) 33.4 % MONO % (test code = 5905-5) 8.9 % EOS % (test code = 713-8) 1.0 % BASO % (test code = 706-2) 0.7 % GRAN MAT x10^3(ANC) (test code = 1088256774) 4.62 10*3/uL 1.88-7.09 IMM GRAN x10^3 (test code = 0430081463) 0.03 10*3/uL 0.00-0.06 LYMPH x10^3 (test code = 731-0) 2.77 10*3/uL 1.32-3.29 MONO x10^3 (test code = 742-7) 0.74 10*3/uL 0.33-0.92 EOS x10^3 (test code = 711-2) 0.08 10*3/uL 0.03-0.39 BASO x10^3 (test code = 704-7) 0.06 10*3/uL 0.01-0.07 Lab Interpretation (test code = 33394-4) [facility] [id number] 21:24:34EXAM: XR CHEST 2 VW COMPARISON: 05/19/2023 HISTORY: SOB FINDINGS: Lungs: The lungs are well slightly hyperexpanded but clear. No focalopacity. No pleural abnormality. Heart/Mediastinum: The cardiomediastinal silhouette is unremarkable.Somewhat prominent left atrial appendage contour. Bones and softtissues: Moderate right mid thoracic dextroscoliosisUnH[facility]ballTransthoracic echo (TTE)2023-07-13 01:27:21* Test Item Value Reference Range Interpretation Comme nts Height (test code = 4745624875) 68 in Weight (test code = 6380038611) 150 lbs Systolic BP (test code = 8229682574) 114 mmHg Diastolic BP (test code = 1948764432) 68 mmHg Heart Rate (test code = 6154654354) 74 bpm Ao root diam (test code = 2923933702) 2.90 cm Aortic root (test code = 4985230801) 2.9 cm Ao root annulus (test code = 4565442691) 2.9 cm BSA (test code = 6332448189) 1.81 m2 LVOT diameter (test code = 9732213794) 1.88 cm LVOT area (test code = 8273336413) 2.80 cm2 LA size (test code = 1283142606) 2.9 cm ACS (test code = 1987604104) 2.25 cm PV PEAK VELOCITY (test code = 7052905646) 70.7 cm/s PV peak gradient (test code = 2708910210) 2.00 mmHg LVIDD (test code = 2059524708) 4.70 cm Left Ventricular End Diastolic Volume by Teichholz Method (test code = 4075780) 101.8 mL IVS (test code = 1606081102) 1.08 cm Interventricular Septum Diastolic Thickness by 2D (test code = 3768930) 1.08 cm LVPWD (test code = 0025104787) 0.98 cm PW (test code = 1479610241) 0.98 cm 0.6-1.1 EF(Teich) (test code = 6487300538) 57.10 % LVIDS (test code = 1281561485) 3.30 cm Left Ventricular End Systolic Volume by Teichholz Method (test code = 0765289) 43.7 mL FS (test code = 0970739439) 30 % EF - 2D (test code = 08660086) 57.10 % MV E-F slope (test code = 2919145184) 35.50 cm/s MV Peak E Jef (test code = 3740789483) 111.1 cm/s MV valve area p 1/2 method (test code = 9967901309) 6.20 cm2 MV dec slope (test code = 9925921707) 911.00 cm/s2 MV P1/2t max jef (test code = 0015556370) 109.50 cm/s MV Peak A Jef (test code = 5754738731) 49.3 cm/s E/A ratio (test code = 9015152326) 2.26 ratio LVOT stroke volume (test code = 2273172585) 53.70 cm3 LVOT peak jef (test code = 6935369558) 100.6 cm/s LVOT mn grad (test code = 2115439159) 1.7 mmHg AV LVOT peak gradient (test code = 5731898996) 4.0 mmHg LVOT peak VTI (test code = 7041286595) 19.3 cm LV V1 mean (test code = 2478217419) 58.80 cm/s Aortic valve mean velocity (test code = 5106414840) 86.7 cm/s Ao peak jef (test code = 2804987113) 141.2 cm/s Ao VTI (test code = 5996725002) 27.7 cm AV area by cont VTI (test code = 1227694622) 1.9 cm2 AV area peak jef (test code = 8607287007) 2.0 cm2 Ao max PG (test code = 9149946432) 8.00 mm[Hg] AV peak gradient (test code = 8956989217) 8.0 mmHg AV valve area (test code = 6313414955) 1.94 cm2 AV mean gradient (test code = 9713234496) 3.6 mmHg TR Peak Jef (test code = 2056469200) 198.9 cm/s Triscuspid Valve Regurgitation Peak Gradient (test code = 9646407597) 15.8 mmHg LAV(MOD-sp4) (test code = 6012122241) 24.30 mL LA Volume Index (BP) (test code = 3007537543) 11.8 mL/m2 LA volume (BP) (test code = 1687208103) 21.3 mL LAV(MOD-sp2) (test code = 6878902182) 19.50 mL Radiology Study observation (narrative) (test code = 94813-8) SHARON (test code = SHARON) ?Left?Ventricle: Left ventricle size is normal. Normal wall thickness. Normal wall motion. Normal systolic function with a visually estimated EF of 50 - 55%. Normal diastolic function. ?Right?Ventricle: Right ventricle size is normal. Normal systolic function. ?Tricuspid?Valve: Insufficient tricuspid regurgitation jet to estimate RVSP, but probably normal. ?RA pressure is 0-5 mmHg. Left VentricleLeft ventricle size is normal. Normal wall thickness. Normal wall motion. Normal systolic function with a visually estimated EF of 50 - 55%. Normal diastolic function.Right VentricleRight ventricle size is normal. Normal systolic function.Left AtriumLeft atrium size is normal.Right AtriumRight atrium size is normal.IVC/SVCIVC diameter is less than or equal to 21 mm and decreases greater than 50% during inspiration; therefore the estimated right atrial pressure is normal (~0-5 mmHg).Mitral ValveMitral valve structure is normal. Trace transvalvular regurgitation.Tricusp id ValveTricuspid valve structure is normal. Trace transvalvular regurgitation. Insufficient tricuspid regurgitation jet to estimate RVSP, but probably normal. RA pressure is 0-5 mmHg.Aortic ValveAortic valve structure is normal.Pulmonic ValveValve structure is normal.Ascending AortaNormal sized aorta.PericardiumThe pericardium is normal. No pericardial effusion.Study DetailsStudy quality was adequate. A complete echocardiogram was performed using 2D, color flow Doppler and spectral Doppler. [facility] [id number] 00:31:00* Test Item Value Reference Range Interpretation Comme nts POCT PREG (test code = 1605) Negative On board controls acceptable with C Line (test code = 3574) Yes POCT PREG LOT # (test code = 3575) [id number] POCT PREG TEST DATE ( test code = 3576) 08/10/2024 Lab Interpretation (test cod e = 72849-6) Normal [facility] MOLECULAR [id number] 16:58:38* Test Item Value Reference Range Interpretation Comme nts POCT Molecular Strep (test c ode = 03277-9) Positive Negative A Lab Interpretation (test cod e = 41617-7) Abnormal [facility] Notes Date/Time Note Provider Source 2024-03-21 13:08:06 Attempted to contact patient to review results, no answer, left VM to return phone call. XR CHEST 2 VW Result Date: 03/21/2024 Study: Two view chest. Ordering Physician: EMETERIO COBOS Date: 03/21/2024 10:50 AM History:chest tightness, covid positive COMPARISON: None. Findings: Frontal and lateral views of the chest demonstrate a normal heart size. The lungs are clear without infiltrate, pleural effusion or pneumothorax. Scoliotic curvature of the thoracolumbar spine is present. No acute osseous abnormality is visualized. Impression: 1. No acute cardiopulmonary process is identified. RL: [id number] HS:Y [facility] 2024-02-23 09:15:00 Summary: Patient will return once lab receives clarrification of orders . [facility] Linda German [facility] 2023-09-23 18:16:02 Summary: Discharge Pt given printed and verbal discharge instructions regarding shortness of breath, encouraged hydration, Prescriptions provided none Discussed ibuprofen and to take with food to avoid GI distress. Pt verbalized understanding of instructions, pt awake alert oriented, resp reg unlabored, skin w/d, color appropriate for race, moves all ext well,pt encouraged to follow up with pcp Advised to seek medical attention for new/prolonged/worsening of symptoms, Symptoms No adverse reaction to meds given in ER noted upon discharge PIV d'cd, dressing to site, catheter in tact. Awake, alert oriented, resp reg unlabored, skin w/d, pt leaving amb with steady gait, in no apparent distress or shortness of breath at time of discharge BUCKER Lauren Johnson RN [facility] 2023-09-23 13:59:46 Pt to ED via pov. Vss. Alert and ambulatory. Pt states she has been having SOB for over a week and her pcp sent her here for CTA for PE. Hx of asthma Pituitary tumor Hypothyroid depression BUCKER Alexander Ruiz RN [facility] 2023-08-25 19:12:00 Regarding: nausea, gi issues, feeling hot, cold, with fatigue. ----- Message from Asmita Hanna sent at 08/25/2023 7:12 PM BULL BUCKER ----- Bozena Vora is a 23 year old female BUCKER Azalia Urrutia RN [facility] 2023-08-25 19:12:00 Bozena Vora is a 23 year old female Patient calling with concern of decreased mental clarity. States she saw her outside radiology ct technologist about 1 week ago, and had labs drawn. She had a telephone appointment with the doctor to review labs and was advised to change the dose of medication. She has not picked up the new medication as of yet, but is calling to ask if the mental clarity could be related to the thyroid levels. Advised that it could be, but she should really discuss this with her doctor. Discussed that I can do a triage for the symptom, but the recommendation will not be related to her thyroid levels. She states she will contact the provider in the morning. Advised to present to ER for any worsening symptoms. Azalia Urrutia RN [facility] Access Center Triage Nurse Reason for Disposition [1] Caller requesting NON-URGENT health information AND [2] PCP's office is the best resource Protocols used: Information Only Call - No [id number] 2023-04-26 14:29:06 Formatting of this n ote might be different from the original. Routing to provider to send alternative medication lLEVALBUTEROL. [facility] 2023-03-07 12:06:13 Formatting of this n ote might be different from the original. Pharmacy changed to [facility] per patient request. Rx sent to pharmacy as requested. Itzel Del Angel RN 03/07/2023 12:08 PM [facility]
--- NOTE | 2024-04-18 07:35 | ER ---
Nurse's Notes [facility] Name: Bozena Vora Age: 23 yrs Sex: Female : 2000 Arrival Date: 04/18/2024 Time: 06:22 Bed 6 Private MD: Diagnosis: Post-tonsillectomy bleeding Presentation: 04/18 06:30 Chief complaint: Patient states: I had tonsillectomy on Tuesday and it started bleeding jb4 this morning at 3 am. It is dark red with clots. Coronavirus screen: At this time, the client does not indicate any symptoms associated with coronavirus-19. Ebola Screen: No symptoms or risks identified at this time. Initial Sepsis Screen: Does the patient meet any 2 criteria? No. Patient's initial sepsis screen is negative. Does the patient have a suspected source of infection? No. Patient's initial sepsis screen is negative. Risk Assessment: Do you want to hurt yourself or someone else? Patient reports no desire to harm self or others. Onset of symptoms was April 18, 2024. Transition of care: patient was not received from another setting of care. 06:30 Method Of Arrival: Ambulatory jb4 06:30 Acuity: JANAY 4 jb4 07:49 Acuity: JANAY 3 iw Triage Assessment: 06:35 General: Appears in no apparent distress. Pain: Denies pain. br2 06:40 General: Behavior is calm, quiet. br2 06:42 EENT: Throat is reddened has patchy exudate. br2 PAYMENT REP: 06:40 LMP 03/25/2024, unknown br2 Historical: - Allergies: 06:34 [place] thyroid; jb4 06:34 PORK PORCINE CONTAINING PRODUCTS; jb4 - PMHx: 06:34 None; jb4 - PSHx: 06:34 Tonsillectomy; jb4 - Immunization history:: Adult Immunizations up to date. - Infectious Disease History:: Denies. - Social history:: Smoking status: Patient denies any tobacco usage or history of. Screenin:34 [place] ED Fall Risk Assessment (Adult) History of falling in the last 3 months, br2 including since admission No falls in past 3 months (0 pts) Confusion or Disorientation No (0 pts) Intoxicated or Sedated No (0 pts) Impaired Gait No (0 pts) Mobility Assist Device Used No (0 pt) Altered Elimination No (0 pt) Score/Fall Risk Level 0 - 2 = Low Risk Oriented to surroundings. Abuse screen: Denies threats or abuse. Nutritional screening: No deficits noted. Tuberculosis screening: No symptoms or risk factors identified. Assessment: 08:12 General: Appears in no apparent distress. Behavior is calm, cooperative. Neuro: Level iw of Consciousness is awake, alert, obeys commands, Oriented to person, place, time, situation, Moves all extremities. Full function. Cardiovascular: Capillary refill < 3 seconds in bilateral fingers Patient's skin is warm and dry. Respiratory: Respiratory effort is even, unlabored, Respiratory pattern is regular, symmetrical. Derm: Skin is intact, is healthy with good turgor. Musculoskeletal: Range of motion: intact in all extremities. Vital Signs: 06:30 BP 124 / 78; Pulse 65; Resp 16; Temp 97.6(O); Pulse Ox 99% on R/A; Weight 72.57 kg (R); jb4 Height 5 ft. 8 in. (R); Pain 0/10; 06:30 Body Mass Index 24.33 (72.57 kg, 172.72 cm) jb4 06:30 Pain Scale: Adult jb4 ED Course: 06:23 Patient arrived in ED. jj6 06:32 Elisa Richard RN is Primary Nurse. br2 06:34 Triage completed. jb4 06:34 Arm band placed on right wrist. jb4 06:40 No provider procedures requiring assistance completed. br2 06:41 Patient has correct armband on for positive identification. Bed in low position. Side br2 rails up X 1. Provided Education on: treatment plan. 07:06 Avani Slater MD is Attending Physician. sd2 07:34 Avani Vega MD is Referral Physician. sd2 08:05 Initial lab(s) drawn, by me, sent to lab. Inserted saline lock: 20 gauge in left iw antecubital area, using aseptic technique. Blood collected. Flushed with 10 mL NS. 08:26 Avani Vega MD is Hospitalizing Provider. sd2 09:15 Primary Nurse role handed off by Elisa Richard RN iw 09:15 Piedad Gross RN is Primary Nurse. iw 11:42 1142 CM met with patient at bedside in the ED exam room. Patient identified by name and ane . Demographic sheet confirmed. states she lives with her aunt Dalila in a single story home. She reports that prior to admission, she performs ADLs independently and without limitations. NO HH, home oxygen, no DME or other medical services at this time. No MPOA in place at this time. Patient's preferred plan is to return home upon discharge and states that Dalila can transport her home. CM team will continue to follow and coordinate care. 17:14 Patient admitted, IV remains in place. cm10 17:21 Report faxed at 1711. Trey confirmed received at 1712. cm10 Administered Medications: 08:12 Drug: tranexamic acid 1 grams IV at 1 mg/hr once Route: IV; Rate: 1 mg/hr; Site: left iw antecubital; 10:00 Follow up: Response: No adverse reaction; IV Status: Completed infusion; IV Intake: cm10 100ml 09:16 Drug: NS 0.9% IV 1000 ml IV at 1 bolus Per protocol; 1000 mL bolus Route: IV; Rate: 1 iw bolus; Site: left antecubital; 10:45 Follow up: Response: No adverse reaction; IV Status: Completed infusion; IV Intake: cm10 1000ml Medication: 08:13 VIS not applicable for this client. iw Intake: 10:00 IV: 100ml; Total: 100ml. cm10 10:45 IV: 1000ml; Total: 1100ml. cm10 Outcome: 07:34 Discharge ordered by . sd2 08:26 Decision to Hospitalize by Provider. sd2 10:00 Admitted to ER Hold. Please see [facility] for further documentation. cm10 10:00 Condition: good 10:00 Instructed on the need for admit, 18:07 Patient left the ED. cm10 Signatures: Piedad Gross, RN NITA iw Davon Lowe RN RN [email or web address] Cherrie Navarro Stephanie, MD MD sd2 Mariaelena Vora, NITA RN cm10 Elisa Richard, NITA littlejohn2 Mya Myles RN RN ane Corrections: (The following items were deleted from the chart) 06:36 06:34 Allergies: No Known Allergies; gabi ashley
--- NOTE | 2024-04-18 07:35 | EDPHYS ---
Physician Documentation [facility] Name: Bozena Vora Age: 23 yrs Sex: Female : 2000 Arrival Date: 04/18/2024 Time: 06:22 Bed 6 Private MD: ED Physician Avani Slater HPI: 04/18 07:28 This 23 yrs old Female presents to ER via Ambulatory with complaints of Post sd2 Surgical Bleeding. 07:28 23-year-old female presents with chief complaint of postsurgical bleeding status post sd2 tonsillectomy that occurred this past Tuesday with Dr. Vega. She reports waking up around 3 AM and feeling the blood coming down the back of her throat. She states she felt like it started to slow down or maybe even stopped about 20 minutes ago. She does not have any other new symptoms or pain and has been doing well otherwise since the procedure.. 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 - Infectious Disease History:: Denies. - Social history:: Smoking status: Patient denies any tobacco usage or history of. ROS: 07:28 Constitutional: Negative for fever, chills, and weight loss, Eyes: Negative for injury, sd2 pain, redness, and discharge, 07:28 Neck: Negative for injury, pain, and swelling, Skin: Negative for injury, rash, and discoloration, 07:28 ENT: Positive for Tonsillar bleeding, Negative for injury or acute deformity, Exam: 07:28 Constitutional: This is a well developed, well nourished patient who is awake, alert, sd2 and in no acute distress. Head/Face: Normocephalic, atraumatic. Eyes: EOMI, normal conjunctiva bilaterally ENT: Nares patent. No nasal discharge, no septal abnormalities noted. Oropharynx with post-surgical changes noted to bilateral tonsillar areas with moderate sized clot noted to right side, uvula midline. No active bleeding noted. Mucous membranes moist. Neck: Trachea midline, no thyromegaly or masses palpated, and no cervical lymphadenopathy. Supple, full range of motion without nuchal rigidity, or vertebral point tenderness. No Meningismus. Vital Signs: 06:30 BP 124 / 78; Pulse 65; Resp 16; Temp 97.6(O); Pulse Ox 99% on R/A; Weight 72.57 kg (R); jb4 Height 5 ft. 8 in. (R); Pain 0/10; 06:30 Body Mass Index 24.33 (72.57 kg, 172.72 cm) jb4 06:30 Pain Scale: Adult jb4 MDM: 07:27 Patient medically screened. sd2 07:28 Differential Diagnosis postsurgical bleeding, anemia, wound infection among others. sd2 Data reviewed: vital signs, nurses notes. Counseling: I had a detailed discussion with the patient and/or guardian regarding the historical points, exam findings, and any diagnostic results supporting the discharge/admit diagnosis, the need for outpatient follow up, an ENT specialist. 07:40 ED course: Discussed case with Dr. Vega due to visible clot present. Recommends 1g sd2 slow TXA infusion and she will come evaluate the patient in 45 minutes in the ER.. 08:25 ED course: Dr. Vega evaluated the patient and recommends observation.. sd2 04/18 07:41 Order name: CBC with Diff; Complete Time: 08:25 sd2 Administered Medications: 08:12 Drug: tranexamic acid 1 grams IV at 1 mg/hr once Route: IV; Rate: 1 mg/hr; Site: left iw antecubital; 10:00 Follow up: Response: No adverse reaction; IV Status: Completed infusion; IV Intake: cm10 100ml 09:16 Drug: NS 0.9% IV 1000 ml IV at 1 bolus Per protocol; 1000 mL bolus Route: IV; Rate: 1 iw bolus; Site: left antecubital; 10:45 Follow up: Response: No adverse reaction; IV Status: Completed infusion; IV Intake: cm10 1000ml Disposition Summary: 04/18/24 08:26 Hospitalization Ordered Notes: Hospitalization Status: Observation sd2 Provider: Avani Vega Condition: Stable(04/18/24 08:26) sd2 Problem: new(04/18/24 08:26) sd2 Symptoms: have improved(04/18/24 08:26) sd2 Bed/Room Type: Standard sd2 Location: Telemetry/MedSurg (observation)(04/18/24 16:57) bd Room Assignment: 414(04/18/24 16:57) bd Diagnosis - Post-tonsillectomy bleeding sd2 Forms: - Medication Reconciliation Form sd2 - SBAR form sd2 - Leadership Thank You Letter sd2 Signatures: Dispatcher [employer] EDMS Dolores Mora bd Piedad Gross RN RN iw Davon Lowe RN RN jb4 Avani Slater MD MD sd2 Mariaelena Vora RN cm10 Corrections: (The following items were deleted from the chart) 06:36 06:34 Allergies: No Known Allergies; jbМарина jb4 07:36 07:34 Home sd2 sd2 07:36 07:34 new sd2 sd2 07:36 07:34 have improved sd2 sd2 07:36 07:34 Stable sd2 sd2 07:36 07:34 Post-tonsillectomy bleeding sd2 sd2 07:40 07:28 ED course: Clinical exam reassuring with no active bleeding. Area appears to have sd2 clotted off. No other concerning postsurgical changes. Pt to call Dr. Vega's office when they open this morning to discuss symptoms and follow up plan as well. Verbalizes understanding of discharge plan and strict return precautions. . sd2 09:13 08:26 Telemetry/MedSurg (observation) sd2 iw 09:13 08:26 sd2 iw 16:57 09:13 [facility] ER HOLD iw bd 16:57 09:13 ERHOLD- iw bd
[2024-04-18] MEDS ORDERED: TRANEXAMIC ACID 1,000 MG/10 ML VIAL IV ONE (07:42)
[2024-04-18] MEDS ORDERED: NA CHLORIDE 0.9% 100 ML ONE (07:42)
[2024-04-18 08:17] LABS: Absolute Eosinophils 0.2 K/uL (0-0.5); Absolute Lymphocytes (CBC) 2.8 K/uL (0.7-4.9); Absolute Monocytes 0.6 K/uL (0.1-1.3); Absolute Neutrophil 3.4 K/uL (1.8-8.0); Basophils % 0.6 % (0-1.3); Eosinophils % 2.6 % (0-4.4); Hematocrit 34.5 % (36.0-45.0); Hemoglobin 11.2 g/dL (12.0-15.0); Lymphocytes % 40.2 % (15.3-44.8); MCH 24.6 pg (27.0-35.0); MCHC 32.4 g/dL (32.0-36.0); MPV 7.2 fL (7.6-11.3); Monocytes % 8.3 % (3.3-12.3); Neutrophils % 48.3 % (41.7-73.7); Nucleated Red Blood Cells % 0.1 % (0-0); Platelets 357 thou/uL (152-406); RBC Red Blood Cell Count 4.54 M/uL (3.86-4.86); Red Cell Distribution Width 15.4 % (12.1-15.2)
[2024-04-18] MEDS ORDERED: ONDANSETRON 4 MG/2 ML VIAL IV PRN (08:19)
--- NOTE | 2024-04-18 08:27 | P.HP ---
Certification for Inpatient Patient admitted to: Observation Patient will require the following post-hospital care: None Practitioner: I am a practitioner with admitting privileges, knowledge of patient current condition, hospital course, and medical plan of care. Services: Services provided to patient in accordance with Admission requirements found in Title 42 Section 412.3 of the Code of Federal Regulations Patient History Date of Service: 04/18/24 Reason for admission: secondary post-tonsillectomy hemorrhage History of Present Illness: Carlos underwent tonsillectomy @[facility] by Dr Vega on April 13, 2024. She was having expected post-op course at home until yesterday morning when she had a small amount of blood streaked saliva and contacted the clinic for guidance. She did not have any additional or significant bleeding until around 3AM this morning when she woke up with sensation in the throat and was coughing up and spitting up blood. After a while, the blood subsided but was in great enough amount to warrant urgent medical evaluation and proceeded to the ER. She noted that the bleeding to stop just prior to her presentation in the ER. Allergies Pork/Porcine Containing Products Allergy (Verified 04/10/24 08:58) Nausea/Vomiting thyroid, pork [From [place] Thyroid] Allergy (Verified 04/10/24 08:58) Nausea/Vomiting Home Medications: Albuterol Inhaler [Ventolin Inhaler] 2 puff IH Q6H PRN 04/10/24 Desvenlafaxine Succinate [Pristiq ER] 50 mg PO DAILY 04/10/24 Ergocalciferol (Vitamin D2) [Vitamin D 50,000 Unit Cap] 1 tab PO Q7D 04/10/24 Levothyroxine [Synthroid] 5 mcg PO DAILY 04/10/24 Levothyroxine [Synthroid] 112 mcg PO DAILY 04/10/24 Multivitamin 2 cap PO DAILY 04/10/24 buPROPion HCL [Wellbutrin Xl] 300 mg PO DAILY 04/10/24 Review of Systems ENT: Throat Pain Respiratory: Hemoptysis Cardiovascular: Unremarkable Gastrointestinal: Nausea Musculoskeletal: Unremarkable Integumentary: Unremarkable Neurological: Unremarkable Lymphatics: Unremarkable Physical Examination - Physical Exam General: Alert, In no apparent distress, Oriented x3 HEENT: Atraumatic, Normocephalic, PERRLA, Mucous membr. moist/pink, Other (OP with flat, stable appearing clot in R fossa with thin surrounding eschar. L fossa with thin eschar and scant areas of granulation without bleeding or clot.) - Studies Laboratory Data (last 24 hrs) 04/18/24 08:02 WBC 7.00 Hgb 11.2 L Hct 34.5 L Plt Count 357 Assessment and Plan - Plan secondary post - tonsillectomy hemorrhage no active bleeding PLAN: TXA, 1gm IV now 1L IVF bolus now Due to stable clot, no active OR indicated at this time Place in OBS NPO Pain and nausea meds PRN Stool softeners due to use of narcotics Reassess around noon for further disposition - Advance Directives Does patient have a Living Will: No Does patient have a Durable POA for Healthcare: No
[2024-04-18] MEDS ORDERED: ALBUTEROL 2.5 MG/3 ML NEB SOL NEB PRN (08:35)
[2024-04-18] MEDS ORDERED: DOCUSATE NA 100 MG CAP PO ONE (09:35)
[2024-04-18] MEDS ORDERED: NS KCL 20MEQ 1,000 ML IV ONE (09:36)
[2024-04-18] MEDS ORDERED: HYDROCODONE/APAP 7.5/325 MG TAB ONE ×2 (09:36→17:06)
[2024-04-18] MEDS: HYDROCODONE/APAP 7.5/325 MG TAB PO PRN (10:40)
[2024-04-18] MEDS: BUPROPION HCL XL 150 MG TAB PO SCH (10:40)
[2024-04-18] MEDS: NS KCL 20MEQ 20 MEQ/1,000 ML BAG IV SCH (10:40)
[2024-04-18] MEDS: LEVOTHYROXINE SOD 0.112 MG TAB PO SCH (10:40)
[2024-04-18] MEDS: DOCUSATE NA 100 MG CAP PO SCH (10:40)
[2024-04-18 11:16] VITALS: BMI 24.3
[2024-04-18 18:38] VITALS: O2SAT 99
--- NOTE | 2024-04-19 07:06 | P.PN ---
Date of Service: 04/19/24 POD 6 tonsillectomy. No overnight events. Casey PO. No subjective bleeding. Expected degree of sore throat/pain. Sleeping comfortably. Awakens easily. OP with no clot, no blood, expected eschar of B tonsillar fossa Stable, s/p secondary post-tonsillectomy hemorrhage without need for surgical intervention. D/C home with diet as tolerated, light activity for 1 week. Has supply of pain medication at home currently. Continue other home medications for mood and thyroid. RTC with Dr Vega's office as currently scheduled.
[2024-04-19 09:12] VITALS: BP 120/79; TEMP 97.6
== END 2024-04-19 09:10 | disposition home or self-care (01) ==
LOC: ER 06:22 → ERHOLD 08:17 → 4TH 17:08
PROVIDERS: ADMIT Otolaryngology; ATTEND Otolaryngology
DX: K91.841 Postprocedural hemorrhage of a digestive system organ or structure following other procedure (principal); R07.0 Pain in throat; Z91.018 Allergy to other foods; Z48.815 Encounter for surgical aftercare following surgery on the digestive system; Z98.890 Other specified postprocedural states; Z90.89 Acquired absence of other organs
CPT/HCPCS: 96365; 96361; 85025; 36415; 99285; 96366; J3480 ×3; G0378